=== PATIENT | male | born 1960 | race Caucasian/White ===

== ENCOUNTER 2018-11-21 20:18 | Inpatient (IN) | payer OTHER, SELFPAY ==
[2018-11-21] MEDS ORDERED: Neomycin-Polymyxin 1 ML AMP ONE (20:53)
[2018-11-21] MEDS ORDERED: HYDROcodone/Acetaminophen 5/325 mg Tablet ONE (21:00)
[2018-11-21] MEDS ORDERED: Fentanyl 100 MCG/2 ML VIAL ONE (21:03)
[2018-11-21] MEDS ORDERED: Fentanyl 250 MCG/5 ML VIAL ONE (21:15)
[2018-11-22] MEDS ORDERED: Fentanyl 100 MCG/2 ML VIAL ONE ×3 (00:39→01:17)
[2018-11-22] MEDS ORDERED: HYDROcodone/Acetaminophen 5/325 mg Tablet ONE (01:51)
--- NOTE | 2018-11-22 08:26 | HP ---
TRAUMA ACTIVATION: Level 2. HISTORY OF PRESENT ILLNESS: This is a 58-year-old male who presented to [facility] as a transfer from [place]. Per patient, he was working on some scaffolding and fell, estimated height approximately 20-25 feet. The patient said he tried to land on his feet, but got caught in the braces for the scaffolding. He had immediate onset of bilateral lower extremity pain. He denies head trauma or loss of consciousness. He was seen and evaluated at [place] [facility] where he was suspected to have bilateral open tib-fib fractures. Therefore, he was transferred to [facility] for further evaluation and care. Upon evaluation in our ER, the patient was found to have a right tib-fib fracture, possibly open , and a left mccann laceration/abrasion. He has received a tetanus and 2 g of Ancef prior to my arrival. Orthopedic Surgery has seen and evaluated the patient and planned for operative intervention tonight. The patient currently has a chief complaint of right lower extremity pain, 3/10, worsened with movement and manipulation, better with rest and pain medication. ALLERGIES: NONE. HOME MEDICATIONS: Ultram, unknown dose of statin, Pepcid and unknown antidepressant. CHRONIC MEDICAL ILLNESSES: Include chronic back pain, depression, high cholesterol, and acid reflux. PAST SURGICAL HISTORY: Significant for left knee surgery and right patella surgery. SOCIAL HISTORY: The patient works as a contractor. Endorses rare alcohol use. He is a current one pack per day smoker. Denies illicit drug use. FAMILY HISTORY: Significant for mother from breast cancer. REVIEW OF SYSTEMS: A 10-point review of systems was performed and negative except as indicated in HPI. PHYSICAL EXAMINATION: VITAL SIGNS: On evaluation, heart rate 81, blood pressure 116/88, respiratory rate of 18, and O2 saturation 97% on room air. GENERAL: Resting in bed, in no acute distress. Scattered areas on his extremities covered in paint. HEENT: Head is normocephalic, atraumatic. Eyes, pupils are PERRL. Extraocular movements are intact. NECK: Supple. Trachea is midline. There is no midline tenderness to palpation. C-collar has been removed by ER physician. Range of motion within normal limits per patient. CHEST: Atraumatic. Nontender to palpation. Normal breathing. Symmetric rise. Lungs are clear to auscultation bilaterally. CARDIOVASCULAR: Regular rate and rhythm. No obvious murmurs, rubs, or gallops. GI: Abdomen is soft, nontender, nondistended. Bowel sounds are positive. No palpable organomegaly. MUSCULOSKELETAL: Bilateral upper extremities within normal limits. Bilateral lower extremities are splinted. He is neurovascularly intact distal to the site of his injury. NEURO: GCS is 15. No focal deficit is noted. LABORATORY FINDINGS: WBC count 9.8, hemoglobin 15.2, hematocrit 47.1, platelet count 202. Sodium 143, potassium 4.2, chloride 106, carbon dioxide 22, BUN 16, creatinine 1.39, and glucose is 108. RADIOGRAPHIC FINDINGS: Unable to review secondary to issues with computer system at this time. I have discussed the findings with Orthopedic Surgery and Radiology. X-ray of the right lower extremity demonstrates a right proximal tib-fib fracture. CT head, C-spine, chest, abdomen, and pelvis was negative for acute traumatic injury. ASSESSMENT: 1. Status post fall greater than 10 feet. 2. Right proximal tib-fib fracture, possibly open. 3. Left lower extremity laceration abrasion. 4. Chronic back pain. 5. Acute traumatic pain. 6. History of gastroesophageal reflux disease. 7. History of depression. PLAN: Admit to Trauma Services. Gentle IV fluid hydration. Postoperative pain management primarily with p.o. analgesics. Postoperative PT and OT. DVT and gastritis prophylaxis when appropriate. A.m. labs. Plan for admission was discussed with patient and family at bedside and all questions were answered at the time of this dictation. Trauma attending has been notified of admission. Job ID: [id number] MTDD
--- NOTE | 2018-11-22 08:27 | RAD ---
XR Pelvis AP STANDARD HISTORY: Fall with pelvic pain COMPARISON: None. FINDINGS: The pelvic ring appears intact without evidence of fracture. Arthritic change lower lumbar spine and hips are noted. IMPRESSION: No evidence of fracture.
[2018-11-22] MEDS ORDERED: Cyclobenzaprine 10 MG TAB PO PRN (08:51)
[2018-11-22] MEDS ORDERED: Famotidine 20 MG TAB PO SCH (09:00)
[2018-11-22] MEDS ORDERED: Morphine 4 MG/ML VIAL IV SCH (09:00)
[2018-11-22 09:35] VITALS: BMI 24.2
[2018-11-22 11:07] LABS: #Lymphocytes 1.9 thou/uL (1.20-3.40); #Monocytes 0.6 thou/uL (0.11-0.59); #Neutrophils 8.7 thou/uL (1.40-6.50); %Basophils 0.3 % (0.0-1.0); %Eosinophils 0.2 % (0.0-10.0); %Lymphocytes 17.1 % (21.0-51.0); %Monocytes 5.6 % (0.0-10.0); %Neutrophils 76.8 % (42.0-75.0); Hemoglobin 11.9 g/dL (14.0-18.0); Mean Corpuscular HGB CONC 32.6 g/dL (32.0-36.0); Mean Corpuscular Hemoglobin 32.7 pg (27.0-31.0); Mean Platelet Volume 9.2 fL (7.4-10.4); Platelet Count 161 thou/uL (130-400); Red Blood Cell (RBC) Count 3.63 mill/uL (4.70-6.10); White Blood Cell (WBC) Count 11.3 thou/uL (4.8-10.8)
[2018-11-22 11:37] LABS: Anion Gap 12 mmol/L (10-20); BUN (Urea Nitrogen) 17 mg/dL (8.4-25.7); Calc. Creatinine Clearance 84 mL/min (70-130); Calcium 8.9 mg/dL (7.8-10.44); Carbon Dioxide 26 mmol/L (22-29); Chloride 103 mmol/L (98-107); Estimated GFR-MDRD 75; Glucose 184 mg/dL (70-105); Potassium 4.1 mmol/L (3.5-5.1); Sodium 137 mmol/L (136-145)
[2018-11-22] MEDS: traMADol HCl 50 MG TAB PO SCH ×3 (11:38→23:10)
[2018-11-22] MEDS: Acetaminophen 500 MG TAB PO SCH ×3 (11:39→23:10)
--- NOTE | 2018-11-22 12:06 | RAD ---
RIGHT HIP TWO VIEWS: HISTORY: Right hip pain. COMPARISON: None. FINDINGS: Two views of the right hip show no evidence of acute fracture or dislocation. Mild degenerative cuba ge is seen in the right hip. IMPRESSION: No evidence of acute osseous abnormality. POS: [facility]
[2018-11-22] MEDS ORDERED: Calcium Carbonate 500 MG ChewTAB PO PRN (12:08)
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
--- NOTE | 2018-11-22 12:20 | RAD ---
Radiograph right leg tibia-fibula 2 views: DATE: 11/22/2018 Time: 11:34 PM HISTORY: 58-year-old male status post acute traumatic fracture of proximal tibia and fibula FINDINGS: Small [id number] fluoroscopic spot images obtained in OR with C-arm. The comminuted fracture of th e proximal tibial metaphysis has been reduced. It has been fixated with a long lateral metallic sideplate fixated to bone by multiple screws. The alignment is now nearly anatomical. The comminuted and displaced fracture of the fibular head has somewhat improved alignment, but has no metallic fixation. IMPRESSION: Immediately status post open reduction internal fixation of acute, traumatic, comminuted, displaced p roximal tibial metaphyseal fracture.
[2018-11-22 12:58] LABS: Carbon Dioxide 17 mmol/L (22-29); Chloride 107 mmol/L (98-107); Potassium 4.9 mmol/L (3.5-5.1); Sodium 139 mmol/L (136-145)
[2018-11-22 12:59] LABS: Anion Gap 20 mmol/L (10-20)
[2018-11-22 13:01] LABS: Albumin 4.2 g/dL (3.5-5.0); Alkaline Phosphatase 66 U/L (40-150); BUN (Urea Nitrogen) 17 mg/dL (8.4-25.7); Bilirubin, Total 0.8 mg/dL (0.2-1.2); Calc. Creatinine Clearance 72 mL/min (70-130); Calcium 9.5 mg/dL (7.8-10.44); Estimated GFR-MDRD 62; Globulin 2.6 g/dL (2.4-3.5); Glucose 88 mg/dL (70-105); Protein, Total 6.8 g/dL (6.0-8.3)
[2018-11-22 13:02] LABS: ALT (SGPT) 27 U/L (8-55); AST (SGOT) 45 U/L (5-34)
--- NOTE | 2018-11-22 13:14 | CT ---
CT CHEST AND ABDOMEN AND PELVIS WITH IV CONTRAST: CT THORACIC SPINE WITH IV CONTRAST LIMITED: CT LUMBAR SPINE WITH IV CONTRAST LIMITED: HISTORY: Injury from trauma. TECHNIQUE: Chest, abdomen, and pelvis CT scan with IV contrast. FINDINGS: CHEST/ABDOMEN/PELVIS: No mediastinal hematoma. The aorta is unremarkable. Three vessel coronary ar liana calcific disease. No pneumothorax or pleural effusion or other significant acute post traumatic process in the chest. In the abdomen, there is a possible tiny cyst in the liver. The gallbladder, pancreas, spleen, and adrenal glands are unremarkable. No solid renal mass or acute obstruction. Probable small left renal cyst. No free intraperitoneal fluid within the abdomen or pelvis. Keri l appearing appendix. Sigmoid colon diverticulosis without acute diverticulitis. Two small left pos terolateral bladder diverticula. Fat-containing right inguinal hernia. THORACIC SPINE: IMPRESSION: Thoracic spondylosis without acute fracture or dislocation. LUMBAR SPINE: IMPRESSION: Multilevel disk osteophytosis with multilevel variable severity canal, lateral recess, and foraminal stenosis from disk osteophytosis. No acute fracture or dislocation. IMPRESSION: 1. No significant acute post traumatic process in the chest, abdomen, or pelvis. 2. Other nonemergent findings as above. 3. Thoracic spondylosis without acute fracture or dislocation of the thoracic spine. 4. Multilevel disk osteophytosis with multilevel variable severity canal, lateral recess, and forami nal stenosis from disk osteophytosis, and no acute fracture or dislocation of the lumbar spine. POS: [facility]
[2018-11-22] MEDS: Gabapentin 100 MG CAP PO SCH ×2 (14:19→20:27)
[2018-11-22] MEDS: Ibuprofen 800 MG TAB PO SCH ×2 (14:19→21:32)
[2018-11-22] MEDS: CEFAZOLIN 2 GM in Premix Bag 1 BAG IVPB SCH ×2 (14:19→21:31)
[2018-11-22] MEDS: Morphine 2 MG/ML SYRINGE SLOW IVP PRN ×3 (14:27→21:31)
[2018-11-22] MEDS ORDERED: Polyethylene Glycol 3350 17 GM Packet PO SCH (14:30)
--- NOTE | 2018-11-22 15:39 | PRG ---
DATE OF SERVICE: 11/22/2018 SUBJECTIVE: A 58-year-old male, who fell from approximately 20 to 25 feet, found to have a right tib-fib fracture, status post orthopedic surgery, postoperative day 1. The patient's pain was uncontrolled overnight. He takes tramadol 20 mg twice daily at home at baseline, and tramadol 100 mg has not been helping with pain. He received 4 mg of morphine with relief. The patient also reports having bowel movement daily. He has not yet had bowel movement, but has not been up walking. He is tolerating regular diet. The patient is complaining of acid reflux. He takes famotidine at home for this. OBJECTIVE: VITAL SIGNS: Blood pressure 106/68, temperature 98.9, pulse 85, respiratory rate 16, SpO2 of 96% on room air. GENERAL: Alert and oriented, in no acute distress, lying in bed. HEENT: Atraumatic and normocephalic. White paint in hand and face. NECK: Supple. Trachea, midline. RESPIRATORY: Clear to auscultation bilaterally. No respiratory distress. CARDIOVASCULAR: Regular rate and rhythm. No murmurs. ABDOMEN: Soft, nontender, and nondistended. Bowel sounds present. MUSCULOSKELETAL: Bilateral lower extremities are splinted. Able to wiggle toes. Does report some tingling in right lower extremity, but normal sensation to dull touch. NEUROLOGIC: No focal deficits. LABORATORY FINDINGS: White blood cell count 11.3, hemoglobin 11.9. Glucose 184. RADIOGRAPHIC FINDINGS: Due to computer issue yesterday, reports were reviewed later this morning. 1. Pelvis: No evidence of fracture. 2. Tib-fib x-ray immediately status post open reduction and internal fixation of acute traumatic comminuted displaced proximal tibial metaphyseal fracture. 3. Brain CT: No CT evidence of acute intracranial process. 4. Cervical spine CT: No acute fracture or malalignment of the cervical spine. 5. Chest, abdomen, and pelvis CT: Thoracic spondylosis without acute fracture or dislocation. 6. Hip x-ray: No evidence of acute osseous abnormality. ASSESSMENT: 1. Status post fall greater than 10 feet. 2. Right proximal tib-fib fracture, status post open reduction and internal fixation. 3. Left lower extremity laceration, abrasion. 4. Chronic back pain. 5. Acute traumatic pain. 6. Gastroesophageal reflux disease. 7. Depression and anxiety. PLAN: We will increase the patient's pain regimen. We will augment the patient's pain regimen with p.r.n. morphine available for breakthrough, and we will also add on gabapentin 100 mg t.i.d. Continue cefazolin for antibiotics. He is currently on aspirin 81 mg b.i.d., for DVT prophylaxis. We will continue the patient's home famotidine for acid reflux. PT and OT will work with the patient today. Ortho is following. This patient was discussed with Dr. Davis during morning rounds, and the plan was discussed with the patient, who is in agreement with the plan. Job ID: [id number]
[2018-11-22 18:27] LABS: #Lymphocytes 2.4 thou/uL (1.20-3.40); #Monocytes 0.8 thou/uL (0.11-0.59); #Neutrophils 7.8 thou/uL (1.40-6.50); %Basophils 0.2 % (0.0-1.0); %Eosinophils 0.3 % (0.0-10.0); %Lymphocytes 21.7 % (21.0-51.0); %Monocytes 7.6 % (0.0-10.0); %Neutrophils 70.2 % (42.0-75.0); Hemoglobin 11.3 g/dL (14.0-18.0); Mean Corpuscular HGB CONC 33.1 g/dL (32.0-36.0); Mean Corpuscular Hemoglobin 33.3 pg (27.0-31.0); Mean Platelet Volume 9.3 fL (7.4-10.4); Platelet Count 148 thou/uL (130-400); White Blood Cell (WBC) Count 11.2 thou/uL (4.8-10.8)
[2018-11-22 18:43] LABS: INR-International Normal Ratio 1.1; PTT 34.3 SEC (22.9-36.1); Prothrombin Time 14.4 SEC (12.0-14.7)
[2018-11-22] MEDS: Famotidine 20 MG TAB PO SCH (20:27)
[2018-11-22] MEDS: Senokot S 8.6-50 MG TAB PO SCH (20:27)
[2018-11-22] MEDS: Aspirin 81 mg Enteric Coated Tablet PO SCH (20:27)
[2018-11-22] MEDS ORDERED: Atorvastatin Calcium 20 MG TAB PO SCH (21:00)
[2018-11-23] MEDS: Morphine 2 MG/ML SYRINGE SLOW IVP PRN (04:43)
[2018-11-23 04:45] LABS: #Eosinphils 0.1 thou/uL (0.0-0.7); #Lymphocytes 2.7 thou/uL (1.20-3.40); #Monocytes 0.9 thou/uL (0.11-0.59); #Neutrophils 5.9 thou/uL (1.40-6.50); %Basophils 0.4 % (0.0-1.0); %Eosinophils 1.2 % (0.0-10.0); %Lymphocytes 28.3 % (21.0-51.0); %Neutrophils 61.2 % (42.0-75.0); Hemoglobin 10.4 g/dL (14.0-18.0); Mean Corpuscular HGB CONC 32.7 g/dL (32.0-36.0); Mean Corpuscular Hemoglobin 33.5 pg (27.0-31.0); Mean Platelet Volume 9.1 fL (7.4-10.4); Platelet Count 130 thou/uL (130-400); RBC Distribution Width 11.9 % (11.5-14.5); Red Blood Cell (RBC) Count 3.11 mill/uL (4.70-6.10); White Blood Cell (WBC) Count 9.6 thou/uL (4.8-10.8)
[2018-11-23 05:09] LABS: Anion Gap 8 mmol/L (10-20); BUN (Urea Nitrogen) 18 mg/dL (8.4-25.7); Calc. Creatinine Clearance 101 mL/min (70-130); Carbon Dioxide 29 mmol/L (22-29); Chloride 105 mmol/L (98-107); Estimated GFR-MDRD Greater than 90; Glucose 116 mg/dL (70-105); Magnesium 1.9 mg/dL (1.6-2.6); Sodium 138 mmol/L (136-145)
[2018-11-23] MEDS: traMADol HCl 50 MG TAB PO SCH ×2 (06:20→11:04)
[2018-11-23] MEDS: CEFAZOLIN 2 GM in Premix Bag 1 BAG IVPB SCH (06:21)
[2018-11-23] MEDS: Acetaminophen 500 MG TAB PO SCH ×2 (06:21→11:04)
[2018-11-23] MEDS: Ibuprofen 800 MG TAB PO SCH (06:21)
[2018-11-23] MEDS ORDERED: Sodium Chloride 0.9% 1,000 ML IV SCH (07:00)
[2018-11-23] MEDS: Senokot S 8.6-50 MG TAB PO SCH (08:20)
[2018-11-23] MEDS: Famotidine 20 MG TAB PO SCH (08:20)
[2018-11-23] MEDS: Gabapentin 100 MG CAP PO SCH (08:20)
[2018-11-23] MEDS: Aspirin 81 mg Enteric Coated Tablet PO SCH (08:20)
[2018-11-23] MEDS ORDERED: Multivit, Therapeutic 1 TAB PO SCH ×2 (09:00)
[2018-11-23] MEDS ORDERED: Polyethylene Glycol 3350 17 GM Packet PO SCH (09:00)
[2018-11-23 11:28] VITALS: BP 104/64; TEMP 98.1
--- NOTE | 2018-11-23 21:12 | DIS ---
DATE OF ADMISSION: 11/22/2018 DATE OF DISCHARGE: 11/23/2018 ADMISSION DIAGNOSES: 1. Fall from scaffolding greater than 20 feet. 2. Right open tib-fib fracture. 3. Left leg laceration. 4. Acute traumatic pain. 5. Chronic back pain. 6. History of gastroesophageal reflux disease. 7. History of depression. CONSULTANTS: Jewel Pahceco MD, Orthopedic Surgery. PROCEDURES: Open reduction and internal fixation of right lower extremity fracture with Dr. Pacheco on 11/21/2018. HOSPITAL COURSE: Elvin Berrios is a 58-year-old male, who presented to [facility] as a level 2 trauma status post fall from scaffolding. He was seen and evaluated in the emergency room and found to have the above injuries. The patient was taken to the operating room on the date of his injury by Orthopedic Surgery. Postoperatively, the patient did well. He completed a course of IV antibiotics. He was tolerating a general diet and ambulating with minimal assistance. Pain was controlled via p.o. analgesics. The patient was deemed stable for discharge on the morning of 11/23/2018 after discussion with the appropriate consultants. DISCHARGE DISPOSITION: Home. DISCHARGE CONDITION: Good. PHYSICAL EXAMINATION: VITAL SIGNS: Temperature 98.1, pulse 71, respirations 16, O2 saturation 97% on room air, blood pressure 104/64. GENERAL: Resting in bed and in no acute distress. PULMONARY: Normal work of breathing. Symmetric rise. CARDIOVASCULAR: Regular rate and rhythm. GI: Abdomen is soft, nontender, and nondistended. MUSCULOSKELETAL: Right lower extremity dressing is clean, dry, and intact. NEURO: No focal deficit is noted. DISCHARGE INSTRUCTIONS: The patient should keep his orthopedic dressings clean and dry. He is nonweightbearing on the right lower extremity. He should ambulate as instructed by Physical Therapy. DISCHARGE MEDICATIONS: The patient was discharged home on, 1. Tylenol 1000 mg q.6 hours. 2. Aspirin 81 mg b.i.d. for 30 days. 3. Gabapentin 100 mg t.i.d. 4. Ibuprofen 800 mg t.i.d. 5. Ultram 50 to 100 mg q.6 hours p.r.n. #40. FOLLOWUP APPOINTMENTS: The patient is to follow up with his primary care provider for his chronic medical illnesses. He should follow up with Orthopedic Surgery in approximately 10 days. He does not need to follow up formally with Trauma Services and may call our office with any questions. This is merely a summary of the patient's hospitalization. For more depth information, please see his medical record in its entirety. Job ID: [id number]
== END 2018-11-23 13:05 | disposition home or self-care (01) | DRG 494 ==
LOC: ERS 20:18 → SJJU 11-22 01:40
PROVIDERS: ADMIT Surgery; ATTEND Surgery
PROC: 0QSG04Z Reposition Right Tibia with Internal Fixation Device, Open Approach (ICD-10-PCS; principal; 2018-11-22)
DX: S82.101B Unspecified fracture of upper end of right tibia, initial encounter for open fracture type I or II (principal); S81.812A Laceration without foreign body, left lower leg, initial encounter; S01.81XA Laceration without foreign body of other part of head, initial encounter; W12.XXXA Fall on and from scaffolding, initial encounter; Y93.H3 Activity, building and construction; Y92.9 Unspecified place or not applicable; F17.210 Nicotine dependence, cigarettes, uncomplicated; E78.00 Pure hypercholesterolemia, unspecified; F32.9 Major depressive disorder, single episode, unspecified; F41.9 Anxiety disorder, unspecified; K21.9 Gastro-esophageal reflux disease without esophagitis; Z79.899 Other long term (current) drug therapy
CPT/HCPCS: 36415; 70450; 71260; 72125; 72170; 74177; 76000; 80048; 83735; 84100; 85025; 85610; 85730; 86850; 86900; 86901; 93005; C1713; G0390; J0131; J0690; J2270; J3010

== ENCOUNTER 2019-05-06 14:54 | Observation (INO) | payer OTHER, SELFPAY ==
[2019-05-06] MEDS ORDERED: HYDROcodone/Acetaminophen 5/325 mg Tablet PO PRN ×3 (16:04→18:16)
[2019-05-06] MEDS ORDERED: Acetaminophen 325 MG TAB PO PRN ×2 (16:04→18:16)
[2019-05-06] MEDS ORDERED: Ondansetron ODT 4 MG TAB SL PRN (16:04)
[2019-05-06] MEDS ORDERED: Sodium Chloride 0.9% 1,000 ML IV SCH (16:04)
[2019-05-06] MEDS ORDERED: Ondansetron PF 4 MG/2 ML Vial IVP PRN (16:04)
[2019-05-06 18:12] VITALS: BMI 22.8
[2019-05-06] MEDS ORDERED: Senokot S 8.6-50 MG TAB PO PRN (18:16)
[2019-05-06] MEDS ORDERED: Nicotine 14 MG PATCH TD SCH (18:30)
[2019-05-06 19:51] LABS: Troponin I Less than 0.010 ng/mL (< 0.028)
[2019-05-06] MEDS ORDERED: Atorvastatin Calcium 20 MG TAB PO SCH (21:00)
[2019-05-06] MEDS ORDERED: Famotidine 20 MG TAB PO SCH (21:00)
[2019-05-06] MEDS: Gabapentin 300 MG CAP PO SCH (21:19)
[2019-05-06] MEDS: HYDROcodone/Acetaminophen 5/325 mg Tablet PO PRN (21:22)
[2019-05-06] MEDS: Famotidine 20 MG TAB PO SCH (23:07)
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
[2019-05-07 05:10] LABS: #Basophils 0.1 thou/uL (0.0-0.2); #Eosinphils 0.4 thou/uL (0.0-0.7); #Lymphocytes 3.5 thou/uL (1.20-3.40); #Monocytes 0.6 thou/uL (0.11-0.59); #Neutrophils 2.6 thou/uL (1.40-6.50); %Basophils 0.8 % (0.0-1.0); %Eosinophils 5.5 % (0.0-10.0); %Monocytes 8.3 % (0.0-10.0); %Neutrophils 36.4 % (42.0-75.0); Hemoglobin 13.9 g/dL (14.0-18.0); Mean Corpuscular HGB CONC 33.2 g/dL (32.0-36.0); Mean Corpuscular Hemoglobin 32.4 pg (27.0-31.0); Mean Corpuscular Volume 97.7 fL (78.0-98.0); Mean Platelet Volume 8.9 fL (7.4-10.4); Platelet Count 197 thou/uL (130-400); RBC Distribution Width 12.6 % (11.5-14.5); White Blood Cell (WBC) Count 7.1 thou/uL (4.8-10.8)
[2019-05-07 05:28] LABS: Anion Gap 10 mmol/L (10-20); BUN (Urea Nitrogen) 16 mg/dL (8.4-25.7); Calc. Creatinine Clearance 101 mL/min (70-130); Calcium 8.9 mg/dL (7.8-10.44); Carbon Dioxide 26 mmol/L (22-29); Cardiac Risk 3.2 (Less than 4.5); Chloride 108 mmol/L (98-107); Cholesterol 145 mg/dl (< 200 Desired); Estimated GFR-MDRD Greater than 90; Glucose 82 mg/dL (70-105); HDL Cholesterol 45 mg/dL (>60 Neg Risk); LDL Cholesterol, Calculated 80 mg/dL; Potassium 4.1 mmol/L (3.5-5.1); Sodium 140 mmol/L (136-145); Triglycerides 100 mg/dL (Less than 150)
[2019-05-07] MEDS ORDERED: Enoxaparin Sodium 40 MG/0.4 ML SYRINGE SC SCH (09:00)
[2019-05-07] MEDS ORDERED: Multivit, Therapeutic 1 TAB PO SCH (09:00)
--- NOTE | 2019-05-07 11:21 | NM ---
EXAM: CARDIAC SPECT HISTORY: Chest pain, [place], dyslipidemia, smoker TECHNIQUE: A myocardial perfusion scan was performed using the single isotope 1 day protocol with darrel hnetium 99m sestamibi. [10 mCi] was injected intravenously for the rest exam followed by 30 mCi for the stress study. Pharmacologic stress with adenosine was monitored and interpreted by Dr. Queen FINDINGS: Homogeneous tracer distribution is seen in the myocardial segments on stress and rest image s without fixed or reversible defects. Gated SPECT LVEF: 55% Wall motion exam: Normal IMPRESSION: Normal myocardial perfusion scan
[2019-05-07] MEDS: Famotidine 20 MG TAB PO SCH (11:34)
[2019-05-07] MEDS: Gabapentin 300 MG CAP PO SCH (11:34)
[2019-05-07] MEDS: HYDROcodone/Acetaminophen 5/325 mg Tablet PO PRN (11:35)
[2019-05-07 11:39] VITALS: BP 136/69; TEMP 98
[2019-05-07] MEDS ORDERED: ADENOSINE 60 MG/20 ML VIAL ONE (12:00)
--- NOTE | 2019-05-08 00:53 | DIS ---
DATE OF ADMISSION: 05/06/2019 DATE OF DISCHARGE: 05/07/2019 PRIMARY CARE PROVIDER: Annia Don, DISCHARGE DIAGNOSES: 1. Chest pain. 2. Chest pain most likely secondary to musculoskeletal etiology. CONDITION OF PATIENT ON THE DAY OF DISCHARGE: Stable. I assessed Mr. Berrios on the day of discharge. He denies any chest pain or shortness of breath. Vital signs are stable. S1 and S2 are heard, regular. Lungs are clear to auscultation bilaterally. DISCHARGE MEDICATIONS: 1. Lipitor 20 mg at bedtime. 2. Pepcid 40 mg 2 times a day. 3. Gabapentin 300 mg 3 times a day. 4. Multivitamins one tab daily. 5. Sertraline 100 mg at bedtime. 6. Tramadol p.r.n. HOSPITAL COURSE: Mr. Berrios is a pleasant 58-year-old gentleman, who was seen at [facility] on May 06, 2019, for chest pain. Please refer to Ms. Wagner's history and physical note for further details. He had CT angiogram of the chest prior to admission, which did not show any evidence of pulmonary embolism. Following admission, he also had nuclear stress test, which was normal. Left ventricular ejection fraction was 55%. His chest pain resolved. He is being discharged home in a stable condition. POST-ACUTE CARE FOLLOWUP: With primary care provider in 3 to 5 days. Many thanks for allowing me to participate in your patient's care. Please feel free to contact me with any questions or concerns. On the day of discharge, Mr. Berrios has sodium 140, potassium 4.1, creatinine 0.81, white count 7100, hemoglobin 13.9, and platelet count 197,000. TSH was normal at 1.41. DISCHARGE DESTINATION: Home. Job ID: [id number]
== END 2019-05-07 12:52 | disposition home or self-care (01) ==
LOC: ERS 14:54 → 2SW 17:49
PROVIDERS: ADMIT Internal Medicine; ATTEND Internal Medicine
DX: R07.89 Other chest pain (principal); I25.2 Old myocardial infarction; K21.9 Gastro-esophageal reflux disease without esophagitis; F17.210 Nicotine dependence, cigarettes, uncomplicated; G89.29 Other chronic pain; M54.9 Dorsalgia, unspecified; F41.9 Anxiety disorder, unspecified; E78.5 Hyperlipidemia, unspecified; G62.9 Polyneuropathy, unspecified; Z79.899 Other long term (current) drug therapy
CPT/HCPCS: 36415; 78452; 80048; 80061; 84443; 85025; 93005; 93017; A9500; G0378; J0153

== ENCOUNTER 2019-08-09 09:02 | Day surgery (SDC) | payer BC ==
[2019-08-08 09:47] VITALS: BMI 22.9
[2019-08-09] MEDS ORDERED: Ketorolac Tromethamine 30 MG/ML VIAL ONE (09:21)
[2019-08-09] MEDS ORDERED: Acetaminophen 500 MG TAB ONE (09:21)
[2019-08-09] MEDS ORDERED: Gabapentin 300 MG CAP ONE (09:21)
[2019-08-09] MEDS ORDERED: PROPOFOL 200 MG/20 ML VIAL ONE (09:26)
[2019-08-09] MEDS ORDERED: Dexamethasone 20 MG/5 ML VIAL ONE (09:26)
[2019-08-09] MEDS ORDERED: Lidocaine 1% PF 5 ML VIAL ONE (09:26)
[2019-08-09] MEDS ORDERED: Ondansetron PF 4 MG/2 ML Vial ONE (09:26)
[2019-08-09] MEDS ORDERED: PHENYLEPHRINE-NS 100 MCG/ML 10 ML SYRINGE ONE (09:26)
[2019-08-09] MEDS ORDERED: Rocuronium Bromide 10 MG/ML (10ML VIAL) ONE (09:26)
[2019-08-09] MEDS ORDERED: Glycopyrrolate 0.2 MG/ML 5 ML SYRINGE ONE (09:26)
[2019-08-09 09:37] LABS: #Basophils 0.1 thou/uL (0.0-0.2); #Eosinphils 0.2 thou/uL (0.0-0.7); #Lymphocytes 2.6 thou/uL (1.20-3.40); #Monocytes 0.6 thou/uL (0.11-0.59); #Neutrophils 8.2 thou/uL (1.40-6.50); %Basophils 0.9 % (0.0-1.0); %Lymphocytes 22.3 % (21.0-51.0); %Monocytes 5.1 % (0.0-10.0); %Neutrophils 69.7 % (42.0-75.0); Hemoglobin 15.8 g/dL (14.0-18.0); Mean Corpuscular HGB CONC 33.3 g/dL (32.0-36.0); Mean Corpuscular Hemoglobin 33.1 pg (27.0-31.0); Mean Corpuscular Volume 99.6 fL (78.0-98.0); Platelet Count 167 thou/uL (130-400); RBC Distribution Width 12.3 % (11.5-14.5); Red Blood Cell (RBC) Count 4.75 mill/uL (4.70-6.10); White Blood Cell (WBC) Count 11.8 thou/uL (4.8-10.8)
[2019-08-09] MEDS ORDERED: Lidocaine 1% w/Epinephrine 1:100K 20 ML VIAL ONE (09:48)
[2019-08-09] MEDS ORDERED: Bupivacaine PF 0.5% 30 ML VIAL ONE (09:48)
[2019-08-09] MEDS ORDERED: Fentanyl 100 MCG/2 ML VIAL ONE ×4 (09:50→12:27)
[2019-08-09] MEDS ORDERED: SUGAMMADEX SODIUM 200 MG/2 ML VIAL ONE (09:50)
[2019-08-09 10:00] LABS: Anion Gap 10 mmol/L (10-20); BUN (Urea Nitrogen) 12 mg/dL (8.4-25.7); Calc. Creatinine Clearance 90 mL/min (70-130); Calcium 9.3 mg/dL (7.8-10.44); Carbon Dioxide 27 mmol/L (22-29); Chloride 105 mmol/L (98-107); Estimated GFR-MDRD 84; Glucose 79 mg/dL (70-105); Potassium 4.3 mmol/L (3.5-5.1); Sodium 138 mmol/L (136-145)
[2019-08-09] MEDS ORDERED: HYDROcodone/Acetaminophen 5/325 mg Tablet ONE (13:03)
--- NOTE | 2019-08-09 16:45 | OP ---
DATE OF PROCEDURE: 08/09/2019 PREOPERATIVE DIAGNOSIS: Right inguinal hernia, indirect. POSTOPERATIVE DIAGNOSIS: Right inguinal hernia, indirect. PROCEDURE PERFORMED: Robot laparoscopic repair of indirect right inguinal hernia with 3D Bard Max large mesh. ANESTHESIA: General, local of 0.5% Marcaine 30 mL mixed with 1% Xylocaine with epinephrine, 20 mL total volume mixture used. DESCRIPTION OF PROCEDURE: The patient was taken to the operating room, where in the supine position, slightly Trendelenburg, under general anesthesia, abdomen was clipped of hair, prepared with ChloraPrep, and draped in routine fashion. Gerardo catheter was placed at the beginning of the procedure and removed at the end. Local anesthetic was infiltrated in the skin and subcutaneous tissue about the operative site. Supraumbilical left of midline incision was made. Pneumoperitoneum to 15 mmHg was obtained with a Veress needle, replaced with 11 balloon port, and the laparoscope was inserted. Bilateral far lateral subcostal incision was made. An 8 mm port was placed. Robot was docked, positioned, and robotic inguinal hernia repair was undertaken by dissecting the peritoneal flap from the anterior superior iliac spine right to the midline reflecting the peritoneal flap medially to Tejas ligament identified and laterally to the retroperitoneum. The inguinal hernia was dissected free freeing the sac from the cord structures keeping the cord structures free of harm freeing more than 8 cm of cord structures. A 3D Bard Max large mesh was properly positioned and secured to Tejas ligament with 2-0 Vicryl and to the anterior abdominal wall to the patient's right of the inferior epigastric vessels with 2-0 Vicryl. Peritoneal flap was then closed with continuous suture of 2-0 Stratafix. Good hemostasis has been noted. [place] were retrieved. Left groin was noted to be free of the hernia. Pneumoperitoneum and instruments were removed as all counts were correct, and anterior fascia left of midline and supraumbilical was approximated with 0 Vicryl on UR needle, and skin incisions were approximated with subdermal 4-0 Monocryl, and [place] glue was applied. Job ID: [id number]
== END 2019-08-09 14:30 | disposition home or self-care (01) ==
LOC: SDC 09:02
PROVIDERS: ATTEND Specialist
PROC: 0YU54JZ Supplement Right Inguinal Region with Synthetic Substitute, Percutaneous Endoscopic Approach (ICD-10-PCS; principal; 2019-08-09)
DX: K40.90 Unilateral inguinal hernia, without obstruction or gangrene, not specified as recurrent (principal); E78.5 Hyperlipidemia, unspecified; J44.9 Chronic obstructive pulmonary disease, unspecified; F17.210 Nicotine dependence, cigarettes, uncomplicated; F41.9 Anxiety disorder, unspecified; Z79.899 Other long term (current) drug therapy
CPT/HCPCS: 36415; 80048; 85025; 93005; 93010; C1781; J0690; J1885; J3010; S0020